=== PATIENT | male | born 1995 | race Two or more races ===

== ENCOUNTER 2018-08-25 10:59 | Emergency (ER) | payer MEDICAID ==
[~2018-08-25] VITALS: Ht 172.7 cm; Wt 70.0 kg
[2018-08-25] MEDS ORDERED: SODIUM CHLORIDE 0.9% 1,000 ML IV ONE ×2 (12:14→15:27)
[2018-08-25] MEDS ORDERED: LORAZEPAM 2MG/ML CPJ IV ONE ×2 (12:45→14:30)
[2018-08-25 15:38] LABS: HEMATOCRIT. 38.1 % (42.0-52.0); HEMOGLOBIN. 13.4 g/dL (14.0-18.0); MEAN CORPUSCULAR HEMOGLOBIN 31.6 pg (28.0-32.0); MEAN PLATELET VOLUME 8.3 fl (7.4-10.4); PLATELET 201 x1000/uL (130-400); RED BLOOD CELL COUNT 4.23 mill/uL (4.7-6.1); RED CELL DISTRIBUTION WIDTH 12.6 % (11.6-14.6)
[2018-08-25 15:39] LABS: CHLORIDE 103 mEq/L (98-107)
[2018-08-25] MEDS ORDERED: POTASSIUM CHLORIDE 20MEQ TABLET SR PO ONE (15:45)
[2018-08-25 15:57] LABS: PLATELET ESTIMATE NORMAL
[2018-08-25] MEDS ORDERED: OSELTAMIVIR 75MG CAPSULE PO ONE (16:00)
[2018-08-25 16:06] LABS: INR 1.1; PARTIAL THROMBOPLASTIN TIME 29.8 sec (23.4-31.0)
[2018-08-25] MEDS ORDERED: LORAZEPAM 2MG/ML CPJ IV NR (16:15)
[2018-08-25] MEDS ORDERED: OSELTAMIVIR 75MG CAPSULE PO NR (16:15)
[2018-08-25] MEDS: POTASSIUM CHLORIDE 20MEQ TABLET SR PO NR ×2 (16:23→16:24)
[2018-08-25] MEDS ORDERED: ACETAMINOPHEN 325MG TABLET PO ONE (18:15)
[2018-08-25] MEDS ORDERED: IBUPROFEN 600MG TABLET PO ONE (18:15)
[2018-08-25] MEDS ORDERED: IOHEXOL-350 100 ML BOTTLE ONE (18:38)
[2018-08-25] MEDS ORDERED: MAGNESIUM 1 G PREMIX 100 ML IV ONE (18:45)
[2018-08-25 20:52] VITALS: BP 108/55
== END 2018-08-25 21:00 | disposition home or self-care (01) ==
LOC: ER 10:59
DX: J10.1 Influenza due to other identified influenza virus with other respiratory manifestations (principal); F41.9 Anxiety disorder, unspecified; J45.909 Unspecified asthma, uncomplicated; E87.8 Other disorders of electrolyte and fluid balance, not elsewhere classified; R00.0 Tachycardia, unspecified
CPT/HCPCS: 36415; 71045; 71275; 80048; 82962; 83735; 84484; 85025; 85610; 85730; 87804; 93005; 96365; 96372; 96375; 99284; J2060; J3475; J7030; Q9967